=== PATIENT | male | born 1950 | race Caucasian/White ===

== ENCOUNTER → 2018-06-20 19:58 | Emergency (ER) | payer OTHER ==
[~2018-06-20 19:58] MED LIST: Albuterol HFA INHALER* 8 gm MDI INH ONE; Lidocaine 2% VISCOUS* 15 ML UDC PO ONE
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
[2018-06-20 22:21] VITALS: BP 136/78
== END | disposition home or self-care (01) ==
LOC: ED 19:58
DX: J02.9 Acute pharyngitis, unspecified (principal); V40.0XXA Car driver injured in collision with pedestrian or animal in nontraffic accident, initial encounter; M79.10 Myalgia, unspecified site; Y92.9 Unspecified place or not applicable
CPT/HCPCS: 99281; A9270-GY